=== PATIENT | male | born 1980 | race Caucasian/White ===

== ENCOUNTER → 2022-05-03 | Day surgery (SDC) | payer OTHER ==
[2022-04-30 12:58] VITALS: BP 121/59
[2022-04-30 13:58] LABS: BUN 9 mg/dl (9-23); CHLORIDE 104 mmol/L (98-107); POTASSIUM 4.6 mmol/L (3.4-5.1)
[~2022-05-03] VITALS: Ht 182.8 cm; Wt 83.0 kg
[2022-05-03 08:32] VITALS: BP 125/72
[2022-05-03 10:38] VITALS: BP 118/59
[2022-05-03 10:53] VITALS: BP 108/53
[2022-05-03 11:08] VITALS: BP 129/79
[2022-05-03 11:23] VITALS: BP 124/69
[2022-05-03 11:38] VITALS: BP 121/79
== END | disposition home or self-care (01) ==
LOC: SDC 04-30 12:30
PROVIDERS: ATTEND Orthopaedic Surgery
DX: S86.011A Strain of right Achilles tendon, initial encounter (principal); X58.XXXA Exposure to other specified factors, initial encounter; Y93.89 Activity, other specified; Y92.89 Other specified places as the place of occurrence of the external cause; Y99.8 Other external cause status